=== PATIENT | female | born 1990 | race American Indian/Alaskan Native ===

== ENCOUNTER 2016-12-14 19:18 | Emergency (ER) | payer MEDICAID ==
[2016-12-14] MEDS ORDERED: Ketorolac 60 MG/2 ML SDV IM ONE (19:33)
[2016-12-14 19:36] VITALS: BP 137/84
--- NOTE | 2016-12-14 19:37 | EDM.PDOC ---
[id number] Complaint: RT FOOT PAIN Time Seen by Provider: 12/14/16 19:34 Source of Information: Reports: Patient History Limitations: Reports: No Limitations - History of Present Illness INITIAL COMMENTS - FREE TEXT/NARRATIVE: 26 yo F who presented to the ER with right ankle pain following an ankle injury last night. Reports that a car door was accidentally slammed against her right ankle yesterday. She was initially able to walk home but has since developed increasing right ankle pain which she rates as 7/10 aggravated by movement. she has not taken any medications for pain. Presented to the ER on account of worsening of symptoms Duration: Day(s): (occurred last night), Getting Worse Location: Reports: Lower Extremity, Right Quality: Reports: Sharp Improves with: Reports: None Worsens with: Reports: Movement Right Ankle Pain Score (Numeric/FACES): 6 - Related Data Allergies Allergy/AdvReac Type Severity Reaction Status Date / Time No Known Allergies Allergy Verified 12/14/16 19:27 Home Meds: Home Meds medroxyPROGESTERone Acetate [Depo-Provera] 1 ml IM Q90D 03/04/14 [History] Social & Family History - Tobacco Use Smoking Status *Q: Current Every Day Smoker Years of Tobacco use: 9 - Alcohol Use Days Per Week of Alcohol Use: 1 Number of Drinks Per Day: 6 Total Drinks Per Week: 6 - Recreational Drug Use Recreational Drug Use: No Review of Systems - Review of Systems Review Of Systems: ROS reveals no pertinent complaints other than HPI. ED EXAM, GENERAL - Physical Exam Exam: See Below Exam Limited By: No Limitations General Appearance: Alert, WD/WN, No Apparent Distress Eye Exam: Bilateral Eye: EOMI Ears: Normal External Exam, Normal Canal, Hearing Grossly Normal, Normal TMs Nose: Normal Inspection, Normal Mucosa Throat/Mouth: Normal Inspection, Normal Lips, Normal Teeth, Normal Oropharynx, Normal Voice Head: Atraumatic, Normocephalic Neck: Normal Inspection, Supple, Non-Tender, Full Range of Motion Respiratory/Chest: No Respiratory Distress, Lungs Clear, Normal Breath Sounds, No Accessory Muscle Use Cardiovascular: Normal Peripheral Pulses, Regular Rate, Rhythm, No Edema GI/Abdominal: Normal Bowel Sounds, Non-Tender, No Organomegaly Extremities: Other (Right ankle -- swollen, tender especially over the right Lateral malleolus) Neurological: Alert, Oriented, CN II-XII Intact, Normal Cognition, Normal Gait Psychiatric: Normal Affect, Normal Mood Skin Exam: Warm, Dry, Normal Color Lymphatic: No Adenopathy Course - Vital Signs Last Recorded V/S: Last Vital Signs Temp 37.4 C 12/14/16 19:28 Pulse 113 H 12/14/16 19:28 Resp 14 12/14/16 19:28 BP 137/84 12/14/16 19:28 Pulse Ox 99 12/14/16 19:28 - Orders/Labs/Meds Orders: Active Orders 24 hr Category Date Time Status Ankle Min 3V Rt [CR] Stat Exams 12/14/16 19:32 Ordered Meds: Medications Discontinued Medications Generic Name Dose Route Start Last Admin Trade Name Meleq PRN Reason Stop Dose Admin Ketorolac Tromethamine 60 mg 12/14/16 19:33 12/14/16 19:37 Toradol IM 12/14/16 19:34 60 mg ONETIME ONE Administration Departure - Departure Time of Disposition: 20:06 Disposition: Home, Self-Care 01 Condition: Good Clinical Impression: Ankle sprain - Discharge Information Instructions: Ankle Sprain Referrals: PCP,Unknown [Primary Care Provider] - Forms: ED Department Discharge Additional Instructions: Follow with PCP Ibuprofen for pain Return if symptoms worsen Time off work -- 2 days Call your Physician or Return to Emergency Department if: * Your condition worsens in any way. * You develop fever greater than 100.4. * You have vomitting that does not stop with medications. * You have pain that is not controlled with medications. - My Orders Last 24 Hours: My Active Orders 12/14/16 19:32 Ankle Min 3V Rt [CR] Stat - Assessment/Plan Last 24 Hours: My Active Orders 12/14/16 19:32 Ankle Min 3V Rt [CR] Stat
--- NOTE | 2016-12-18 12:13 | CR ---
INDICATION: Slammed ankle in car door yesterday. RIGHT ANKLE, 3 VIEWS: FINDINGS: There is diffuse soft tissue swelling that surrounds the ankle, especially laterally. I do not see a fracture or dislocation as visualized. There is a bone island in the posterior third of the calcaneus which is benign. IMPRESSION: Soft tissue swelling. No acute fracture. If symptoms persist, consider follow-up radiographs or if necessary, MRI scan for further evaluation. JAJA
== END 2016-12-14 20:01 | disposition home or self-care (01) ==
LOC: FB.ED 19:18
DX: S93.401A Sprain of unspecified ligament of right ankle, initial encounter (principal); F17.210 Nicotine dependence, cigarettes, uncomplicated; W23.0XXA Caught, crushed, jammed, or pinched between moving objects, initial encounter
CPT/HCPCS: 73610; 96372; 99283; J1885; 99282

== ENCOUNTER 2020-06-14 10:17 | Emergency (ER) | payer MEDICAID ==
[2020-06-14] MEDS ORDERED: Sodium Chloride 0.9% 10 ML Syringe FLUSH PRN ×2 (10:51→12:58)
[2020-06-14] MEDS ORDERED: Sodium Chloride 0.9% 1,000 ML IV SCH (11:00)
[2020-06-14] MEDS: Iopamidol 755 Mg/ML 100 ML Bottle IV ONE (13:22)
--- NOTE | 2020-06-14 13:45 | CR ---
INDICATION: Fever, cough. CHEST ONE VIEW: Single frontal view of the chest was obtained 06/14/20 - no comparison. Heart and mediastinum are unremarkable. A [id number]-rb-[id number] dextroconvex scoliosis of the lower thoracic spine is noted. No consolidating pneumonia ore effusion was seen. IMPRESSION: No acute process. MTDD
--- NOTE | 2020-06-14 14:30 | CT ---
INDICATION: Abdominal pain/cramping/lower abdomen x [address] ABDOMEN AND PELVIS WITH CONTRAST: Spiral 3.75 mm axial sections were obtained through the abdomen and pelvis with 98 cc Isovue 370 at 2 mL/s, with sagittal and coronal reconstructions, 100 second delay-06/14/2020-no comparisons. Total exam DLP was 2020.06 mGy-cm. The lower lung ling and pleural spaces visualized show no definite active infiltrate or effusion. A linear density or two at the left lung base-lower lobe most likely is due to fibrotic change of minimal degree. The kidneys appeared normal without evidence of obstructive uropathy, pyelonephritis or mass lesions. The liver, gallbladder, common bile duct, adrenal glands, spleen, and pancreas appear normal. No masses are noted in the retroperitoneum. A mild degree of retroperitoneal lymphadenopathy is noted, which is nonspecific. The appendix appeared normal visualized on axial images 74-82. No evidence of free air or bowel obstruction was identified. There is noted an abnormal loop of bowel with thickened wall and what appears to be an abscess in the mid pelvis with the probable abscess measuring approximately 33 mm obliquely in the AP projection and approximately 23 mm transversely. There is surrounding bowel loop fat stranding suggesting adjacent peritonitis, which extends inferiorly to the level of the wall of the urinary bladder. This process is in the anterior portion of the pelvis and appears to be involving the redundant sigmoid colon in that area. This finding may be on the basis of diverticulitis, although colitis with subsequent abscess formation would be a consideration. No definite free air is seen in this area to suggest a definite perforation. No free fluid collections were identified-no other mass lesions or organomegaly was seen. IMPRESSION: 1. Findings are felt to be most compatible with diverticulitis or possibly colitis with abscess formation of the sigmoid colon located in the anterior upper mid pelvis, slightly to the right of midline. 2. Report was called to Dr. Madden at 1400 hours. [facility]
[2020-06-14] MEDS: Morphine 2 MG/ML SYRINGE IVPUSH ONE (14:53)
[2020-06-14] MEDS: Piperacillin/Tazobactam 4.5 GM in Sodium Chloride 0.9% 100 ML IV STA (14:55)
--- NOTE | 2020-06-14 15:03 | EDM.PDOC ---
ED HPI GENERAL MEDICAL PROBLEM - General Chief Complaint: Abdominal Pain Stated Complaint: STOMACH SPASMS Time Seen by Provider: 06/14/20 10:25 Source of Information: Reports: Patient History Limitations: Reports: No Limitations - History of Present Illness INITIAL COMMENTS - FREE TEXT/NARRATIVE: Patient presented to the ED because of worsening abdominal pain. It started 2 days ago with associated diarrhea which is watery. There is no associated fever,chills, nausea or urinary symptoms. She denies having any unusual vaginal discharge or previous history of STD. She has a history of SBO from a previous hernia repain several years ago. Lower Abdomen Pain Score (Numeric/FACES): 4 - Related Data Allergies Allergy/AdvReac Type Severity Reaction Status Date / Time No Known Allergies Allergy Verified 06/14/20 10:55 Home Meds: Home Meds NK [No Known Home Meds] 06/14/20 [History] Past Medical History - Past Health History Medical/Surgical History: Denies Medical/Surgical History [employer] History: Reports: - Infectious Disease History Infectious Disease History: Reports: Chicken Pox - Past Surgical History Female Surgical History: Reports: Section Social & Family History - Family History Family Medical History: No Pertinent Family History - Tobacco Use Tobacco Use Status *Q: Light Tobacco User Years of Tobacco use: 13 Packs/Tins Daily: 0 - Caffeine Use Caffeine Use: Reports: Soda - Recreational Drug Use Recreational Drug Use: No ED ROS GENERAL - Review of Systems Review Of Systems: See Below Constitutional: Reports: No Symptoms HEENT: Reports: No Symptoms Respiratory: Reports: No Symptoms Cardiovascular: Reports: No Symptoms Endocrine: Reports: No Symptoms GI/Abdominal: Reports: Abdominal Pain, Diarrhea : Reports: No Symptoms Musculoskeletal: Reports: No Symptoms Skin: Reports: No Symptoms Neurological: Reports: No Symptoms Psychiatric: Reports: No Symptoms Hematologic/Lymphatic: Reports: No Symptoms ED EXAM, GI/ABD - Physical Exam Exam: See Below Exam Limited By: No Limitations General Appearance: Alert, No Apparent Distress Ears: Normal External Exam, Normal Canal Nose: Normal Inspection, Normal Mucosa, No Blood Throat/Mouth: Normal Inspection, Normal Lips, Normal Teeth Head: Atraumatic, Normocephalic Neck: Normal Inspection, Supple, Non-Tender, Full Range of Motion Respiratory/Chest: No Respiratory Distress, Lungs Clear, Normal Breath Sounds Cardiovascular: Normal Peripheral Pulses, Regular Rate, Rhythm, No Edema, No Gallop GI/Abdominal Exam: Normal Bowel Sounds, Soft, Tender (LLQ and suprapubic), Other (No peritonel signs) Back Exam: Normal Inspection, Full Range of Motion Extremities: Normal Inspection, Normal Range of Motion, Non-Tender Neurological: Alert, Oriented, CN II-XII Intact, Normal Cognition Course - Vital Signs Text/Narrative:: Labs/Abd-pelvis CT was discussed with patient She want to be transferred to [facility] in [place] Code Status: Full Code NS 1 L bolus Morphine 2 mg IV Zosyn 4.75 gm IV Case discussed with Dr Mcclain of [facility] ED Last Recorded V/S: Last Vital Signs Temp 36.6 C 06/14/20 10:17 Pulse 97 06/14/20 10:17 Resp 16 06/14/20 10:17 BP 142/79 H 06/14/20 10:17 Pulse Ox 99 06/14/20 10:17 - Orders/Labs/Meds Orders: Active Orders 24 hr Category Date Time Status C-REACTIVE PROTEIN [CHEM] Stat Lab 06/14/20 11:10 Received COMPREHENSIVE METABOLIC PN,CMP [CHEM] Stat Lab 06/14/20 14:40 Results CORONAVIRUS COVID-19 EDA [MOLEC] Stat Lab 06/14/20 14:17 Ordered CULTURE BLOOD [BC] Urgent Lab 06/14/20 14:35 Received CULTURE BLOOD [BC] Urgent Lab 06/14/20 14:40 Received INR,PT,PROTHROMBIN TIME [COAG] Stat Lab 06/14/20 11:10 Received LACTIC ACID [CHEM] Stat Lab 06/14/20 14:40 Received PTT,PARTIAL THROMBOPLSTIN TIME [COAG] Stat Lab 06/14/20 11:10 Received Sodium Chloride 0.9% [Saline Flush] Med 06/14/20 12:58 Active 10 ml FLUSH ASDIRECTED PRN Blood Culture x2 Reflex Set [OM.PC] Urgent Oth 06/14/20 14:16 Ordered Saline Lock Insert [OM.PC] Routine Oth 06/14/20 10:51 Ordered Saline Lock Insert [OM.PC] Routine Oth 06/14/20 12:58 Ordered Medication Orders Sodium Chloride (Saline Flush) 10 ml FLUSH ASDIRECTED PRN PRN Reason: Keep Vein Open Labs: Laboratory Tests 06/14/20 06/14/20 06/14/20 Range/Units 11:00 11:10 14:40 WBC 16.4 H (3.0-10.3) x10-3/uL RBC 4.86 (3.60-5.20) x10(6)uL Hgb 14.4 (11.4-15.5) g/dL Hct 43.6 (34.2-48.2) % MCV 89.8 (76.7-100.5) fL MCH 29.6 (23.9-33.9) pg MCHC 33.0 (31.9-34.8) g/dL RDW 13.0 (12.3-16.5) % Plt Count 294 (151-488) x10(3)uL MPV 7.2 (7.1-12.4) fL Neut % (Auto) 81.5 H (30.8-76.2) % Lymph % (Auto) 11.1 L (18.4-52.1) % [place] % (Auto) 6.1 (4.4-15.7) % Eos % (Auto) 0.9 (0.6-8.1) % Baso % (Auto) 0.4 (0.2-1.5) % Neut # (Auto) 13.4 H (1.5-6.3) x10-3/uL Lymph # (Auto) 1.8 (1.0-4.4) x10-3/uL [place] # (Auto) 1.0 (0.3-1.0) x10-3/uL Eos # (Auto) 0.2 (0.0-0.8) x10-3/uL Baso # (Auto) 0.1 (0.0-0.1) x10-3/uL Sodium Cancelled 139 Potassium Cancelled 3.9 Chloride Cancelled 102 Carbon Dioxide Cancelled 25 Anion Gap Cancelled BUN Cancelled 10 Creatinine Cancelled 0.9 Est Cr Clr Drug Dosing Cancelled 71.63 Estimated GFR (MDRD) Cancelled > 60 BUN/Creatinine Ratio Cancelled 11.1 Glucose Cancelled 110 Calcium Cancelled 9.2 Meds: Medications Generic Name Dose Route Start Last Admin Trade Name Freq PRN Reason Stop Dose Admin Sodium Chloride 10 ml 06/14/20 12:58 Saline Flush FLUSH ASDIRECTED PRN Keep Vein Open Discontinued Medications Generic Name Dose Route Start Last Admin Trade Name Carie PRN Reason Stop Dose Admin Sodium Chloride 1,000 mls @ 999 mls/hr 06/14/20 11:00 Normal Saline IV ASDIRECTED TRINA Piperacillin Sod/Tazobactam 100 mls @ 200 mls/hr 06/14/20 14:14 Sod 4.5 gm/ Sodium Chloride IV 06/14/20 14:43 NOW STA Iopamidol 100 ml 06/14/20 13:14 06/14/20 13:22 Isovue-370 (76%) IV 06/14/20 13:15 98 ml ONETIME ONE Administration Morphine Sulfate 2 mg 06/14/20 14:24 Morphine IVPUSH 06/14/20 14:25 ONETIME ONE Sodium Chloride 10 ml 06/14/20 10:51 Saline Flush FLUSH ASDIRECTED PRN Keep Vein Open Departure - Departure Time of Disposition: 15:10 Disposition: DC/Tfer to Acute Hospital 02 Condition: Good Clinical Impression: Diverticulitis, Peritonitis, Gastroenteritis, Abscess of sigmoid colon - Discharge Information Referrals: Barby Strange [employer] [Primary Care Provider] - Sepsis Event Note (ED) - Evaluation Sepsis Screening Result: No Definite Risk - Focused Exam Vital Signs: Vital Signs Temp Pulse Resp BP Pulse Ox 06/14/20 10:17 36.6 C 97 16 142/79 H 99 - My Orders Last 24 Hours: My Active Orders 06/14/20 10:51 Saline Lock Insert [OM.PC] Routine 06/14/20 11:10 C-REACTIVE PROTEIN [CHEM] Stat INR,PT,PROTHROMBIN TIME [COAG] Stat PTT,PARTIAL THROMBOPLSTIN TIME [COAG] Stat 06/14/20 12:58 Sodium Chloride 0.9% [Saline Flush] 10 ml FLUSH ASDIRECTED PRN Saline Lock Insert [OM.PC] Routine 06/14/20 14:16 Blood Culture x2 Reflex Set [OM.PC] Urgent 06/14/20 14:17 CORONAVIRUS COVID-19 EDA [MOLEC] Stat 06/14/20 14:35 CULTURE BLOOD [BC] Urgent 06/14/20 14:40 COMPREHENSIVE METABOLIC PN,CMP [CHEM] Stat CULTURE BLOOD [BC] Urgent LACTIC ACID [CHEM] Stat - Assessment/Plan Last 24 Hours: My Active Orders 06/14/20 10:51 Saline Lock Insert [OM.PC] Routine 06/14/20 11:10 C-REACTIVE PROTEIN [CHEM] Stat INR,PT,PROTHROMBIN TIME [COAG] Stat PTT,PARTIAL THROMBOPLSTIN TIME [COAG] Stat 06/14/20 12:58 Sodium Chloride 0.9% [Saline Flush] 10 ml FLUSH ASDIRECTED PRN Saline Lock Insert [OM.PC] Routine 06/14/20 14:16 Blood Culture x2 Reflex Set [OM.PC] Urgent 06/14/20 14:17 CORONAVIRUS COVID-19 EDA [MOLEC] Stat 06/14/20 14:35 CULTURE BLOOD [BC] Urgent 06/14/20 14:40 COMPREHENSIVE METABOLIC PN,CMP [CHEM] Stat CULTURE BLOOD [BC] Urgent LACTIC ACID [CHEM] Stat
[2020-06-14 15:13] VITALS: BP 130/72; PULSE 107
== END 2020-06-14 16:45 ==
LOC: FB.ED 10:17
DX: K57.20 Diverticulitis of large intestine with perforation and abscess without bleeding (principal); K52.9 Noninfective gastroenteritis and colitis, unspecified; F17.210 Nicotine dependence, cigarettes, uncomplicated; Z20.828 Contact with and (suspected) exposure to other viral communicable diseases
CPT/HCPCS: 36415; 71045; 74177; 80053; 83605; 85025; 85610; 85730; 86140; 87040; 87077; 87186; 87635; 96365; 96375; 99285; J2270; J2543; J7050; Q9967; U0002

== ENCOUNTER 2022-03-03 13:31 | Emergency (ER) | payer MEDICAID ==
[2022-03-03 14:15] LABS: ESTIMATED GFR 100 mL/min (>60)
[2022-03-03 15:06] VITALS: PULSE 80
[2022-03-03] MEDS ORDERED: Sodium Chloride 0.9% 1,000 ML IV SCH (16:15)
[2022-03-03] MEDS ORDERED: Piperacillin/Tazobactam 3.375 GM in Sodium Chloride 0.9% 50 ML IV SCH (16:15)
[2022-03-03] MEDS ORDERED: Iopamidol 755 MG/ML 150 ML Bottle IV ONE (17:22)
[2022-03-03] MEDS ORDERED: Diatrizoate Meglumine/Diatrizoate Sodium 37% 30 ML Bottle PO ONE (17:22)
[2022-03-03 20:10] VITALS: BP 138/72
== END 2022-03-03 19:55 ==
LOC: FB.ED 13:31
DX: K57.20 Diverticulitis of large intestine with perforation and abscess without bleeding (principal); K29.70 Gastritis, unspecified, without bleeding; E66.9 Obesity, unspecified; Z68.41 Body mass index [BMI] 40.0-44.9, adult; Z20.822 Contact with and (suspected) exposure to COVID-19
CPT/HCPCS: 36415; 80053; 85025; 86140; 87635; 96361; 96365; 99285; J2543; J7030; Q9963; 99284; U0002

== ENCOUNTER 2022-03-26 00:43 | Emergency (ER) | payer MEDICAID ==
[2022-03-26 02:12] VITALS: BP 127/86; PULSE 90
== END 2022-03-26 01:50 | disposition home or self-care (01) ==
LOC: FB.ED 00:43
DX: K65.1 Peritoneal abscess (principal); N97.1 Female infertility of tubal origin; F17.210 Nicotine dependence, cigarettes, uncomplicated; E66.9 Obesity, unspecified; Z68.30 Body mass index [BMI] 30.0-30.9, adult
CPT/HCPCS: 99283